=== PATIENT | female | born 1970 | race Caucasian/White ===

== ENCOUNTER 2020-09-07 19:08 | Inpatient (IN) | payer BC ==
[~2020-09-07] VITALS: Ht 167.6 cm; Wt 100.0 kg
[2020-09-07 19:37] LABS: BASO % 0.6 % (0.0-2.0); EOS # 0.2 (0.0-0.7); EOS % 3.3 % (0-4.0); GRAN # 2.9 (1.4-6.5); GRAN % 58.8 % (42.2-75.2); HEMATOCRIT 41.1 % (37.0-47.0); HEMOGLOBIN 14.5 g/dl (12.5-16.0); LYMPH # 1.5 (1.2-3.4); LYMPH % 31.4 % (20.0-51.0); MEAN CELL VOLUME 86 fl (80.0-100.0); MEAN CORPUSCULAR HEMOGLOBIN 31 pg (27.0-31.0); MEAN CORPUSCULAR HGB CONC 35 g/dl (33.0-37.0); MEAN PLATELET VOLUME 9.1 fl (7.4-10.4); MONO # 0.3 (0.1-0.6); MONO % 5.3 % (1.7-9.3); PLATELET COUNT 179 K/mm3 (130-400); RED BLOOD COUNT 4.76 M/mm3 (4.10-5.30); REDCELL DISTRIBUTION WIDTH-CV 12.2 % (11.5-14.5)
[2020-09-07 19:54] LABS: ALANINE AMINOTRANSFERASE 29 U/L (4-34); ALBUMIN 4.2 gm/dL (3.5-5.0); ALKALINE PHOSPHATASE 142 U/L (50-136); ANION GAP 7 mmol/L (7-16); AST,SGOT 31 U/L (15-37); BILIRUBIN,TOTAL 0.3 mg/dL (0.0-1.0); BLOOD UREA NITROGEN 17 mg/dL (7-17); C-REACTIVE PROTEIN 1.1 mg/dL (0.0-0.9); CALCIUM 8.9 mg/dL (8.4-10.2); CARBON DIOXIDE 25 mmol/L (22-30); CHLORIDE 101 mmol/L (98-107); CREATININE, serum 0.63 (0.52-1.25); GLUCOSE 379 mg/dL (74-106); LIPASE 1404 U/L (23-300); POTASSIUM 4.3 mmol/L (3.4-5.0); SODIUM 133 mmol/L (137-145); TOTAL PROTEIN 7.4 gm/dL (6.4-8.2)
[2020-09-07 20:03] LABS: TROPONIN-I < 0.012 ng/mL (0.000-0.035)
[2020-09-07] MEDS ORDERED: PRINIVIL20 MG PO (20:51)
[2020-09-07] MEDS ORDERED: GLUCOPHAGE500 MG/TAB PO (20:51)
[2020-09-07] MEDS ORDERED: KAOPECTATE262 MG/15 PO (20:53)
[2020-09-07] MEDS ORDERED: VITAMIN B12 781 TAB PO (20:55)
[2020-09-07] MEDS ORDERED: ESTRACE2 MG PO (20:55)
[2020-09-07] MEDS ORDERED: PROFERRIN ES12 MG PO (20:55)
[2020-09-07] MEDS ORDERED: NORCO 325 MG-51 TAB PO (20:56)
[2020-09-07] MEDS ORDERED: LIPITOR20 MG PO (22:34)
[2020-09-07] MEDS ORDERED: MOBIC 7.5MG7.5 MG PO (22:35)
[2020-09-07] MEDS ORDERED: ZOLOFT 50MG50 MG PO (22:35)
[2020-09-07] MEDS ORDERED: PROTONIX 40MG T40 MG PO (22:35)
[2020-09-07 22:51] VITALS: BP 150/62; PULSE 68; TEMP 98
[2020-09-07] MEDS ORDERED: MELATIN 3 MG-11 TAB PO (23:47)
--- NOTE | 2020-09-07 23:56 | NUR ---
Pt. arrived to the floor from ed. Pt. is A&OX3, assessment complete. INT to lt. forearm patent. Pt. reports pain at a 3 on pain sale. Pt. denies further needs, call light within reach.
[2020-09-08 04:19] VITALS: BP 126/65; PULSE 60; TEMP 98.7
[2020-09-08 07:13] VITALS: BP 136/64; PULSE 71; TEMP 98.4
[2020-09-08 07:16] LABS: BASO % 0.6 % (0.0-2.0); EOS # 0.2 (0.0-0.7); EOS % 4.3 % (0-4.0); GRAN # 2.3 (1.4-6.5); GRAN % 46.5 % (42.2-75.2); HEMATOCRIT 37.4 % (37.0-47.0); HEMOGLOBIN 12.8 g/dl (12.5-16.0); LYMPH # 2.1 (1.2-3.4); MEAN CELL VOLUME 88 fl (80.0-100.0); MEAN CORPUSCULAR HEMOGLOBIN 30 pg (27.0-31.0); MEAN CORPUSCULAR HGB CONC 34 g/dl (33.0-37.0); MEAN PLATELET VOLUME 9.7 fl (7.4-10.4); MONO # 0.3 (0.1-0.6); MONO % 5.4 % (1.7-9.3); PLATELET COUNT 167 K/mm3 (130-400); RED BLOOD COUNT 4.24 M/mm3 (4.10-5.30); REDCELL DISTRIBUTION WIDTH-CV 12.4 % (11.5-14.5)
[2020-09-08 07:28] LABS: ALBUMIN 3.3 gm/dL (3.5-5.0); BILIRUBIN,TOTAL 0.3 mg/dL (0.0-1.0); CALCIUM 7.7 mg/dL (8.4-10.2); CHOLESTEROL RISK RATIO 4.7; CREATININE, serum 0.42 (0.52-1.25); POTASSIUM 3.8 mmol/L (3.4-5.0)
--- NOTE | 2020-09-08 09:37 | NUR ---
Initial visit; Patient sleeping, Mule Operator left a prayer card on her table offering peace and hope and Mule Operator's name, letting Charley know there is spiritual care available at our hospital.
--- NOTE | 2020-09-08 10:30 | NUR ---
AM SHIFT ASSESSMENT COMPLETED BY THIS NURSE AND SN DEVIN. DOCUMENTED ASSESSMENT REVIEWED. THIS NURSE AGREES WITH SHIFT ASSESSMENT.
--- NOTE | 2020-09-08 10:30 | NUR ---
PATIENT ALERT & ORIENTED X4. VITAL SIGNS STABLE. DENIES ANY PAIN. MORNING BLOOD GLUCOSE STABLE AT 225. TOLERATING CLEAR LIQUIDS WITH NO N/V. PATIENT ADMITTED WITH PANCREATITIS. IV LEFT FOREARM RUNNING NS @125 ML/HR WITH NO REDNESS, DRAINAGE, OR EDEMA. PATIENT INDEPENDENT IN ROOM WITH SBA FOR TRANSFERS. NONSLIP SOCKS PLACED ON PATIENT BY THIS STUDENT NURSE. NO OTHER NEEDS AT THIS TIME. WILL CONTINUE TO MONITOR.
--- NOTE | 2020-09-08 12:38 | NUR ---
PATIENT REPORTING NAUSEA AND HEADACHE. IV ZOFRAN AND PO TYLENOL GIVEN. NO OTHER COMPLAINTS OR PAIN AT THIS TIME. WILL CONTINUE TO MONITOR AND FOLLOW UP WITH N/V AND PAIN.
[2020-09-08 12:45] VITALS: BP 136/68; PULSE 77; TEMP 98.6
[2020-09-08 15:45] VITALS: BP 112/97; PULSE 66; TEMP 98.4
[2020-09-08 19:20] VITALS: BP 145/56; PULSE 60; TEMP 98.9
--- NOTE | 2020-09-08 21:00 | NUR ---
PT HAS EMESIS IN HER SINK. DENIES NAUSEA, REPORTS SHE HAS REFLUX AND SOMETIMES HAS EMESIS. PT HAS IVF INFUSING TO LEFT FOREARM. IS UP IN ROOM INDEPENDENTLY. DENIES PAIN, ABD SOFT.
[2020-09-08 23:55] VITALS: BP 143/70; PULSE 64; TEMP 98.3
--- NOTE | 2020-09-09 04:00 | NUR ---
PT HAS RESTED WELL. NO FURTHER EMESIS, DENIES PAIN. IVF CONTINUE WITHOUT PROBLEM.
[2020-09-09 04:05] VITALS: BP 124/62; PULSE 62; TEMP 98.6
[2020-09-09 07:24] VITALS: BP 135/70; PULSE 63; TEMP 98.8
[2020-09-09 07:33] LABS: CALCIUM 7.9 mg/dL (8.4-10.2); CREATININE, serum 0.43 (0.52-1.25); POTASSIUM 4.1 mmol/L (3.4-5.0)
[2020-09-09 08:41] LABS: BASO % 0.5 % (0.0-2.0); EOS # 0.1 (0.0-0.7); EOS % 1.4 % (0-4.0); GRAN # 3.2 (1.4-6.5); HEMATOCRIT 39.6 % (37.0-47.0); HEMOGLOBIN 13.7 g/dl (12.5-16.0); LYMPH # 0.9 (1.2-3.4); LYMPH % 20.2 % (20.0-51.0); MEAN CELL VOLUME 87 fl (80.0-100.0); MEAN CORPUSCULAR HEMOGLOBIN 30 pg (27.0-31.0); MEAN CORPUSCULAR HGB CONC 35 g/dl (33.0-37.0); MEAN PLATELET VOLUME 10.5 fl (7.4-10.4); MONO # 0.2 (0.1-0.6); MONO % 4.4 % (1.7-9.3); PLATELET COUNT 104 K/mm3 (130-400); RED BLOOD COUNT 4.57 M/mm3 (4.10-5.30); REDCELL DISTRIBUTION WIDTH-CV 12.2 % (11.5-14.5)
[2020-09-09] MEDS ORDERED: NORVASC 5MG5 MG/TAB PO (09:03)
--- NOTE | 2020-09-09 09:50 | NUR ---
Patient alert and oriented, answers questions appropriately. See assessment. Abdomen soft, non tender, non distended. Bowel sounds active x4 quads. + Flatus. No c/o at this time.
--- NOTE | 2020-09-09 12:07 | NUR ---
Discharge instructions reviewed with patient, verbalized understanding. Discharged via wheelchair to auto/home with family at 1055.
--- NOTE | 2020-09-09 12:53 | NUR ---
SW met with patient about dc plan. Patient reports that she resides in and her spouse Daniel is her care support at . Patient reports that she is uses [facility] on [address] for medicaitons and obtains them without difficulty. Natasha shares that she does not require any DME supports. PCP is new at [facility], denies knowing who. Patient shares that shares that she has transportation and nt concerns with getting home. Denies any DME use, No needs reported. Educated on services. NF
== END 2020-09-09 10:55 | disposition home or self-care (01) | DRG 440 ==
LOC: COL.ER 19:08 → SURG 20:43
PROVIDERS: Emergency Medicine; Physician Assistant; Student in an Organized Health Care Education/Training Program; ADMIT Internal Medicine
DX: K85.90 Acute pancreatitis without necrosis or infection, unspecified (principal); K21.9 Gastro-esophageal reflux disease without esophagitis; E11.9 Type 2 diabetes mellitus without complications; K76.0 Fatty (change of) liver, not elsewhere classified; F64.0 Transsexualism; K76.9 Liver disease, unspecified; R16.0 Hepatomegaly, not elsewhere classified; Z79.84 Long term (current) use of oral hypoglycemic drugs
CPT/HCPCS: 99222-AI; 99233-AI; 99239; G0378; J1650; J1815; J2270; J2405; J7030; Q9967